=== PATIENT | female | born 1955 | race Caucasian/White ===

== ENCOUNTER 2016-11-29 10:56 | Inpatient (IN) ==
[2016-11-29] MEDS ORDERED: ZOFRAN IV ONE (11:18)
[2016-11-29] MEDS ORDERED: NS 1,000 ML IV ONE ×2 (11:18→14:26)
[2016-11-29] MEDS ORDERED: MORPHINE IV ONE (11:19)
[2016-11-29 11:35] LABS: MANUAL DIFF NEEDED? NO
[2016-11-29 11:40] LABS: BASO% 0.1 % (0.0-0.8); EOS# 0.08 X1000 (0.0-0.7); EOS% 0.7 % (0.0-10.0); HEMATOCRIT 40.9 % (37.0-47.0); HEMOGLOBIN 13.8 g/dL (12.0-16.0); IMM GRAN# 0.02 X1000 (0.0-0.04); IMM GRAN% 0.2 % (0.0-0.5); LYMPH# 1.52 X1000 (1.2-3.4); LYMPH% 12.7 % (20.5-51.1); MCH 29.9 PG (27-31); MCHC 33.7 g/dL (33-37); MCV 88.5 FL (81-99); MONO# 1.34 X1000 (0.11-0.59); MONO% 11.2 % (1.7-9.3); MPV 10.9 FL (7.4-10.4); NEUT% 75.1 % (42.2-75.2); PLT 229 X1000 (130-400); RBC 4.62 XMIL (4.2-5.4)
[2016-11-29 11:54] LABS: URINE CULTURE NEEDED? NO; URINE MICRO REVIEW NEEDED? NO; URINE SOURCE CLEAN CATCH
[2016-11-29 11:57] LABS: BILIRUBIN URINE NEGATIVE (NEGATIVE); BLOOD URINE NEGATIVE (NEGATIVE); COLOR YELLOW; GLUCOSE URINE NEGATIVE (NEGATIVE); LEUKOCYTES URINE NEGATIVE (NEGATIVE); NITRITE URINE NEGATIVE (NEGATIVE); PROTEIN URINE TRACE mg/dL (NEGATIVE); SP GRAVITY URINE 1.005; TURBIDITY URINE CLEAR (CLEAR); UROBILINOGEN URINE NORMAL (NORMAL)
[2016-11-29 11:58] LABS: UR EPITHELIAL CELLS <10 /HPF (<10); URINE BACTERIA NEGATIVE /HPF; URINE RBC <10 /HPF (<10); URINE WBC <10 /HPF (<10)
[2016-11-29 12:08] LABS: ALBUMIN 3.2 g/dL (3.5-5.0); CALCIUM 8.2 mg/dL (8.8-10.2); TOTAL BILIRUBIN 0.52 mg/dL (0.20-1.00); TOTAL PROTEIN 5.5 g/dL (6.3-8.3)
[2016-11-29] MEDS ORDERED: FLAGYL 500 MG/NS 500 MG/100 ML IVPB IV ONE (13:30)
[2016-11-29] MEDS ORDERED: VANCOCIN PO ONE (13:30)
[2016-11-29] MEDS ORDERED: KLOR-CON PO ONE (13:31)
[2016-11-29] MEDS ORDERED: NS 1,000 ML IV SCH (14:26)
[2016-11-29] MEDS: MORPHINE IV PRN ×2 (15:45→23:18)
[2016-11-29] MEDS: NS 1,000 ML IV SCH ×2 (16:39→23:17)
[2016-11-29] MEDS: VANCOCIN PO SCH (23:17)
[2016-11-29] MEDS: FLAGYL 500 MG/NS 500 MG/100 ML IVPB IV SCH (23:18)
[2016-11-30] MEDS: VANCOCIN PO SCH ×4 (03:14→21:46)
[2016-11-30] MEDS: FLAGYL 500 MG/NS 500 MG/100 ML IVPB IV SCH ×2 (03:14→09:41)
[2016-11-30 07:13] LABS: HEMATOCRIT 37.6 % (37.0-47.0); HEMOGLOBIN 12.5 g/dL (12.0-16.0); MCH 30.4 PG (27-31); MCHC 33.2 g/dL (33-37); MCV 91.5 FL (81-99); MPV 11.4 FL (7.4-10.4); RBC 4.11 XMIL (4.2-5.4)
[2016-11-30 07:48] LABS: AGAP 3; BUN 6 mg/dL (8-22); CALCIUM 8.4 mg/dL (8.8-10.2); CHLORIDE 112 mmol/L (98-107); COSMO 285; POTASSIUM 3.4 mmol/L (3.5-5.1); SODIUM 145 mmol/L (136-145); TCO2 30 mmol/L (25-35)
[2016-11-30] MEDS: NS 1,000 ML IV SCH ×2 (09:39→17:52)
[2016-11-30] MEDS: CYMBALTA PO SCH (09:40)
[2016-11-30] MEDS ORDERED: KLOR-CON PO ONE (10:48)
[2016-11-30] MEDS ORDERED: RELPAX PO PRN (12:36)
[2016-11-30] MEDS: BENTYL PO SCH ×3 (14:18→21:46)
[2016-11-30] MEDS: ABREVA CREAM TOP SCH ×3 (15:00→21:45)
[2016-11-30] MEDS: KLONOPIN PO SCH (21:45)
[2016-11-30] MEDS: CULTURELLE PO SCH (21:46)
[2016-12-01] MEDS: NS 1,000 ML IV SCH (03:32)
[2016-12-01] MEDS: VANCOCIN PO SCH ×4 (04:43→23:16)
[2016-12-01 06:59] LABS: HEMATOCRIT 35.2 % (37.0-47.0); HEMOGLOBIN 11.8 g/dL (12.0-16.0); MCH 30.3 PG (27-31); MCHC 33.5 g/dL (33-37); MCV 90.5 FL (81-99); MPV 11.3 FL (7.4-10.4); RBC 3.89 XMIL (4.2-5.4)
[2016-12-01 07:31] LABS: AGAP 11; BUN 5 mg/dL (8-22); CALCIUM 7.4 mg/dL (8.8-10.2); CHLORIDE 111 mmol/L (98-107); COSMO 287; POTASSIUM 3.4 mmol/L (3.5-5.1); SODIUM 146 mmol/L (136-145); TCO2 24 mmol/L (25-35)
[2016-12-01] MEDS: ESTRACE PO SCH (08:03)
[2016-12-01] MEDS: CULTURELLE PO SCH ×2 (08:03→23:16)
[2016-12-01] MEDS: BENTYL PO SCH ×4 (08:04→23:16)
[2016-12-01] MEDS: ABREVA CREAM TOP SCH ×5 (08:04→23:17)
[2016-12-01] MEDS: CYMBALTA PO SCH (08:04)
[2016-12-01] MEDS: D5W 1,000 ML IV SCH (14:38)
[2016-12-01] MEDS: KLONOPIN PO SCH (23:16)
[2016-12-02] MEDS: VANCOCIN PO SCH ×4 (02:39→21:50)
[2016-12-02] MEDS: D5W 1,000 ML IV SCH ×2 (02:39→14:53)
[2016-12-02 07:16] LABS: HEMATOCRIT 37.8 % (37.0-47.0); HEMOGLOBIN 12.7 g/dL (12.0-16.0); MCH 29.8 PG (27-31); MCHC 33.6 g/dL (33-37); MCV 88.7 FL (81-99); MPV 11.3 FL (7.4-10.4); RBC 4.26 XMIL (4.2-5.4)
[2016-12-02 07:32] LABS: AGAP 8; BUN 3 mg/dL (8-22); CALCIUM 8.7 mg/dL (8.8-10.2); CHLORIDE 108 mmol/L (98-107); COSMO 282; POTASSIUM 3.1 mmol/L (3.5-5.1); SODIUM 143 mmol/L (136-145); TCO2 27 mmol/L (25-35)
[2016-12-02] MEDS ORDERED: MAGNESIUM SULFATE 2 GM/S.W.I. 2 GM/50 ML IVPB IV ONE (08:42)
[2016-12-02] MEDS ORDERED: KLOR-CON PO ONE (08:42)
[2016-12-02] MEDS: CULTURELLE PO SCH ×2 (10:35→21:51)
[2016-12-02] MEDS: ESTRACE PO SCH (10:35)
[2016-12-02] MEDS: BENTYL PO SCH (10:35)
[2016-12-02] MEDS: CYMBALTA PO SCH (10:36)
[2016-12-02] MEDS: ABREVA CREAM TOP SCH ×6 (10:36→21:51)
[2016-12-02] MEDS: PEPCID IV SCH ×2 (10:42→21:51)
[2016-12-02] MEDS: SODIUM CHLORIDE 0.9% INJ SCH ×2 (10:42→21:51)
[2016-12-02] MEDS: POTASSIUM CHLORIDE 20 MEQ in NS 100 ML IV SCH ×2 (12:07→14:51)
[2016-12-02] MEDS ORDERED: GOLYTELY PO ONE (14:00)
[2016-12-02] MEDS: KLONOPIN PO SCH (21:51)
[2016-12-03] MEDS: VANCOCIN PO SCH ×4 (01:52→22:05)
[2016-12-03] MEDS: D5W 1,000 ML IV SCH (05:53)
[2016-12-03 07:18] LABS: BASO% 0.6 % (0.0-0.8); EOS# 0.12 X1000 (0.0-0.7); EOS% 1.7 % (0.0-10.0); HEMATOCRIT 44.2 % (37.0-47.0); HEMOGLOBIN 15.3 g/dL (12.0-16.0); IMM GRAN# 0.09 X1000 (0.0-0.04); IMM GRAN% 1.3 % (0.0-0.5); LYMPH# 2.61 X1000 (1.2-3.4); LYMPH% 37.1 % (20.5-51.1); MANUAL DIFF NEEDED? NO; MCHC 34.6 g/dL (33-37); MCV 86.7 FL (81-99); MONO% 11.4 % (1.7-9.3); NEUT% 47.9 % (42.2-75.2); PLT 353 X1000 (130-400)
[2016-12-03 07:47] LABS: AGAP 11; BUN 2 mg/dL (8-22); CALCIUM 9.3 mg/dL (8.8-10.2); CHLORIDE 105 mmol/L (98-107); COSMO 279; MAGNESIUM 2.2 mg/dL (1.5-2.7); POTASSIUM 3.6 mmol/L (3.5-5.1); SODIUM 142 mmol/L (136-145); TCO2 26 mmol/L (25-35)
[2016-12-03] MEDS: PEPCID IV SCH ×2 (09:36→22:08)
[2016-12-03] MEDS: SODIUM CHLORIDE 0.9% INJ SCH (09:36)
[2016-12-03] MEDS: ABREVA CREAM TOP SCH ×4 (09:40→22:06)
[2016-12-03] MEDS ORDERED: DIPRIVAN 1% ONE (14:26)
[2016-12-03] MEDS ORDERED: XYLOCAINE-MPF 2% ONE (14:26)
[2016-12-03] MEDS: CULTURELLE PO SCH ×2 (15:47→22:04)
[2016-12-03] MEDS: CYMBALTA PO SCH (15:48)
[2016-12-03] MEDS ORDERED: ESTRACE PO SCH (21:00)
[2016-12-03] MEDS: KLONOPIN PO SCH (22:04)
[2016-12-04] MEDS: VANCOCIN PO SCH ×3 (02:58→14:10)
[2016-12-04 07:42] VITALS: BP 150/84
[2016-12-04] MEDS: CULTURELLE PO SCH (09:13)
[2016-12-04] MEDS: CYMBALTA PO SCH (09:13)
[2016-12-04] MEDS: ABREVA CREAM TOP SCH ×2 (09:14→11:53)
[2016-12-04] MEDS ORDERED: BENTYL PO SCH (16:00)
== END 2016-12-04 14:35 | disposition home or self-care (01) ==
LOC: ED 10:56 → 3N 10:57
PROVIDERS: ATTEND Internal Medicine